=== PATIENT | male | born 1980 | race Caucasian/White ===

== ENCOUNTER 2017-04-27 21:11 | Emergency (ER) | payer SELFPAY ==
[~2017-04-27] VITALS: Ht 165.1 cm; Wt 59.0 kg
[~2017-04-27 21:11] MED LIST: FLEXERIL10 MG PO; MOTRIN600 MG PO; VICODIN 5/500 505 MG PO
[2017-04-27] MEDS ORDERED: PENICILLIN-VK500 MG PO (23:08)
[2017-04-27] MEDS ORDERED: Motrin,Rufen800 MG PO (23:20)
== END 2017-04-27 23:32 | disposition home or self-care (01) ==
LOC: ED 21:11
DX: K08.89 Other specified disorders of teeth and supporting structures (principal)